=== PATIENT | male | born 1990 | race Caucasian/White ===

== ENCOUNTER 2020-09-23 11:02 | Emergency (ER) | payer OTHER ==
[~2020-09-23] VITALS: Ht 182.9 cm; Wt 86.2 kg
== END 2020-09-23 21:45 | disposition home or self-care (01) ==
LOC: ED 11:02
DX: S06.0X9A Concussion with loss of consciousness of unspecified duration, initial encounter (principal); R44.1 Visual hallucinations; W01.198A Fall on same level from slipping, tripping and stumbling with subsequent striking against other object, initial encounter; F17.200 Nicotine dependence, unspecified, uncomplicated; Z88.0 Allergy status to penicillin
CPT/HCPCS: 70450; 80053; 80176; 81001; 84443; 85025; 96372; 99285-25; G0480; J3486

== ENCOUNTER 2024-07-23 12:56 | Emergency (ER) | payer OTHER ==
[~2024-07-23] VITALS: Ht 182.9 cm; Wt 109.5 kg
[2024-07-23] MEDS ORDERED: TETRACAINE HCL 0.5% 4 ML BTL OD ONE ×2 (15:30→16:00)
[2024-07-23] MEDS ORDERED: FLUORESCEIN SOD 1 EA STRP OS ONE (15:30)
[2024-07-23] MEDS ORDERED: FLUORESCEIN SOD 1 EA STRP OD ONE (16:00)
[2024-07-23] MEDS ORDERED: ERYTHROMYCIN1 GM OP (17:10)
[2024-07-23 17:13] VITALS: BP 128/94
== END 2024-07-23 17:13 | disposition home or self-care (01) ==
LOC: ED 12:56
DX: S05.02XA Injury of conjunctiva and corneal abrasion without foreign body, left eye, initial encounter (principal); W22.8XXA Striking against or struck by other objects, initial encounter; F17.200 Nicotine dependence, unspecified, uncomplicated; Z88.0 Allergy status to penicillin
CPT/HCPCS: 99283

== ENCOUNTER 2025-03-25 11:57 | Emergency (ER) | payer OTHER ==
[~2025-03-25] VITALS: Ht 182.9 cm; Wt 118.3 kg
[~2025-03-25 11:57] MED LIST: ERYTHROMYCIN1 GM OP
[2025-03-25 13:16] VITALS: BP 139/82
== END 2025-03-25 13:17 | disposition home or self-care (01) ==
LOC: ED 11:57
DX: S69.92XA Unspecified injury of left wrist, hand and finger(s), initial encounter (principal); F17.200 Nicotine dependence, unspecified, uncomplicated; X58.XXXA Exposure to other specified factors, initial encounter; Z88.0 Allergy status to penicillin
CPT/HCPCS: 73130; 99283